=== PATIENT | male | born 2000 | race Caucasian/White ===

== ENCOUNTER 2023-01-12 01:29 | Observation (INO) ==
[2023-01-12] MEDS ORDERED: SODIUM CHLORIDE 0.9% 1,000 ML IV ONE (01:40)
--- NOTE | 2023-01-12 01:46 | Emergency Department Note ---
Impression & Plan Atrial fibrillation with rapid ventricular response, Alcohol overdose Admit to the [facility] ED Provider Note NAME: RADHA WALTERS AGE: 22 SEX: M ARRIVES VIA: Ambulance INFORMANT: Patient and EMS ED PROVIDER(S): Ginny Laird DO CHIEF COMPLAINT: Vomiting and alcohol intoxication PLAN: Disposition: Admit to the [facility] Condition: Guarded MEDICAL DECISION MAKING: This is a 22-year-old male patient who was found intoxicated and vomiting downtown. He was brought to the emergency department by EMS. Patient was noted to be in atrial fibrillation with rapid ventricular response. Laboratory studies were fairly unremarkable except for an elevated blood alcohol level of 148 and mild anemia of 12.3. Initial troponin was normal. Patient was bolused with IV normal saline solution and heart rate did seem to come down somewhat but the patient remained in atrial fibrillation. With any type of stimulation, heart rate would elevate again. Patient had no further vomiting while here in the ER. I discussed the case with the [facility]ist and they will evaluate for further management. During their evaluation of the patient, the patient converted to a normal sinus rhythm. However, they will continue with the cardiology evaluation of this patient. Triage Nursing notes reviewed and agree with them. Vital Signs: reviewed and remarkable for tachycardia Differential diagnosis: Alcohol overdose, drug intoxication, cardiac dysrhythmia, electrolyte imbalance, cardiac ischemia ER treatment provided: Cardiac monitoring Twelve-lead EKG IV normal saline bolus Diagnostics interpreted by me: ECG: A-fib with RVR at a rate of 124. ST segment depression and T wave in version inferiorly and laterally. There is no ectopy Repeat ECG: A-fib with RVR at a rate of 149. T wave inversions are more pronounced in leads II, III, aVF and V4, V5 and V6. Cardiac Monitoring: A-fib with RVR at a rate of 160 Laboratory studies: See below HPI: 22/M arrives for evaluation of vomiting and alcohol overdose. Patient was found vomiting downtown and admits to drinking alcohol. He denies any other drug use. 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 He occasionally drinks alcohol but denies drug use. HOME MEDICATIONS:None ALLERGIES:None VITALS:See Below PHYSICAL EXAMINATION: HEENT: Head - normocephalic and atraumatic. Pupils are equal, round, and reactive to light. Extraocular eye muscles are intact, and sclera are anicteric. Nose - moist nasal mucosa without discharge. Mouth - moist buccal mucosa. Oropharynx is nonerythematous and there is no tonsillar exudate or edema noted. Neck: Supple; no cervical lymphadenopathy or nuchal rigidity Heart: Tachycardic rate with irregularly irregular rhythm there is a normal S1 and S2 with no murmurs, clicks, or gallops appreciated. Lungs: Clear to auscultation bilaterally with no wheezes, rales, or rhonchi. Abdomen: Soft, completely nontender, nondistended, with good bowel sounds. There are no palpable pulsatile masses or hepatosplenomegaly. There is no guarding, rigidity, or rebound noted. Extremities: No evidence of cyanosis, clubbing, or edema. There are easily palpable peripheral pulses. Skin: Diaphoretic with good turgor and no rashes. ED COURSE: Times/Reassessments: 135 patient was evaluated in room a 12 He was placed in the prone position to avoid aspiration. A twelve-lead EKG was obtained. An order was placed for continuous cardiac monitoring. The patient was in A-fib with RVR at a rate of 160. An IV lock was initiated and labs were drawn as above. The patient was bolused with IV normal saline solution. Upon repeat evaluation, the patient is sleeping and slightly difficult to arouse. He remains tachycardic but blood pressure is normal. I discussed the case with the [facility] Hospitalist and they will evaluate for further management. Heart rate is currently 106. He remains in atrial fibrillation. Ginny Laird DO Past Med/Surg History Medical History (Updated 01/12/23 @ 08:59 by Ginny Laird DO) No chronic diseases present Surgical History (Updated 05/23/19 @ 23:51 by Rupert Hunter PA-C) No significant past surgical history Social History Smoking Status: Never smoker Hx Alcohol Use: Yes Hx Substance Use: No Preferred Language: Turkmen Communication Ability: Effective Bench Hand Machine Required: No Beliefs That Will Affect Care: None Current Living Situation: Other Current Living Situation Comment: College Dorm Other Information That Helps Us Care for You: No Feels Safe at Home: Yes Safety Concerns: Feels Safe At This Time Allergies Allergies Allergy/AdvReac Type Severity Reaction Status Date / Time No Known Allergies Allergy Unverified 05/23/19 03:15 Home Meds Home Medications Medication Instructions Recorded Confirmed No Known Home Medications 01/12/23 01/12/23 Results & Data (ED) Vital Signs Vital Signs - 24 hr 01/12/23 01:34 01/12/23 01:46 01/12/23 01:39 Temperature 36.8 C Temperature Source Oral Pulse Rate 160 H 171 H 132 H Pulse Rate from SpO2 Sensor Pulse Rhythm Irregular Pulse Strength Normal Respiratory Rate 20 14 Respiratory Effort / Characteristics Non-Labored Spontaneous Respiratory Depth Normal Respiratory Pattern Regular Blood Pressure 102/78 102/78 Blood Pressure Mean 86 86 Blood Pressure Position Lying Pulse Oximetry 96 98 Oxygen Delivery Method Room Air Room Air Sepsis Recent Fever Within 48 Hours No Sepsis New/Unexplained Change in Mental Status N/A Sepsis Action Taken by Nursing No Action Required 01/12/23 02:00 01/12/23 02:02 01/12/23 02:30 Temperature Temperature Source Pulse Rate 124 H 108 H 108 H Pulse Rate from SpO2 Sensor 111 H 92 H 176 H Pulse Rhythm Pulse Strength Respiratory Rate 18 16 18 Respiratory Effort / Characteristics Respiratory Depth Respiratory Pattern Blood Pressure 80/56 L 82/62 L 81/61 L Blood Pressure Mean 64 68 67 Blood Pressure Position Pulse Oximetry 99 98 96 Oxygen Delivery Method Room Air Room Air Room Air Sepsis Recent Fever Within 48 Hours Sepsis New/Unexplained Change in Mental Status Sepsis Action Taken by Nursing 01/12/23 03:10 01/12/23 03:37 01/12/23 03:30 Temperature Temperature Source Pulse Rate 133 H 85 158 H Pulse Rate from SpO2 Sensor 153 H Pulse Rhythm Pulse Strength Respiratory Rate 17 Respiratory Effort / Characteristics Respiratory Depth Respiratory Pattern Blood Pressure 101/56 L 113/75 Blood Pressure Mean 71 87 Blood Pressure Position Pulse Oximetry 97 100 Oxygen Delivery Method Room Air Room Air Sepsis Recent Fever Within 48 Hours Sepsis New/Unexplained Change in Mental Status Sepsis Action Taken by Nursing Laboratory Data 01/12/23 05:15 01/12/23 05:15 Lab Results 01/12/23 01/12/23 Range/Units 01:40 01:40 Sodium 141 (136-145) mmol/L Potassium 3.5 (3.5-5.1) mmol/L Chloride 107 (98-107) mmol/L Carbon Dioxide 22 (21-32) mmol/L Anion Gap 12 H (3-11) BUN 15 (6-23) mg/dl Creatinine 1.03 (0.6-1.4) mg/dl Est Cr Clr Drug Dosing 130.8 ml/min Est GFR ( Amer) 119.0 ml/min Est GFR (Non-Af Amer) 102.6 ml/min BUN/Creatinine Ratio 14.6 (10-20) Glucose 128 H (70-99(Fasting)) mg/dl Calcium 9.5 (8.6-10.3) mg/dl Phosphorus 4.7 (2.5-4.9) mg/dl Magnesium 2.3 (1.7-2.4) mg/dl Total Bilirubin 0.2 (0.2-1.0) mg/dl AST 31 (13-39) U/L ALT 30 (7-52) U/L Alkaline Phosphatase 68 (34-104) U/L Troponin I High Sens 20.8 H (0-20) pg/ml Total Protein 7.9 (6.0-8.3) gm/dl Albumin 4.8 (3.4-5.0) gm/dl Globulin 3.1 (2.5-4.0) gm/dl Albumin/Globulin Ratio 1.5 (0.9-2) Ethyl Alcohol mg/dL 148.6 H (<10.0) mg/dl Administered Medications Discontinued Medications Sodium Chloride (Nss) 1,000 mls @ 999 mls/hr IV .Q1H1M ONE Stop: 01/12/23 02:40 Last Infusion: 01/12/23 03:30 Dose: 0 mls/hr Documented By: Admin: 01/12/23 02:03 Dose: 999 mls/hr Documented By: NATACHA Sodium Chloride (Nss) 500 mls @ 999 mls/hr IV .Q31M ONE Stop: 01/12/23 04:12 Last Infusion: 01/12/23 05:00 Dose: 0 mls/hr Documented By: Admin: 01/12/23 04:13 Dose: 999 mls/hr Documented By: ELEONORA Lactated Ringer's (Lr) 1,000 mls @ 125 mls/hr IV .Q8H TEMI Stop: 01/12/23 12:42 Last Infusion: 01/12/23 14:38 Dose: 0 mls/hr Documented By: Admin: 01/12/23 05:54 Dose: 125 mls/hr Documented By: ELEONORA Folic Acid 1 mg/ Syringe 10 mls @ 5 mls/min IV QAM TEMI Stop: 02/11/23 08:59 Last Admin: 01/12/23 08:50 Dose: 5 mls/min Documented By: FINN Thiamine HCl 200 mg/ Sodium (Chloride) 52 mls @ 210 mls/hr IV QAM TEMI Stop: 02/11/23 08:59 Last Infusion: 01/12/23 11:15 Dose: 0 mls/hr Documented By: Admin: 01/12/23 10:51 Dose: 210 mls/hr Documented By: FINN Discharge Plan Visit Data Chief Complaint: Alcohol Intoxication ED Provider: Ginny Laird Discharge Problem: Atrial fibrillation with rapid ventricular response, Alcohol overdose Patient Disposition: Admitted As Inpatient Discharge Instructions Interventions: ED Discharge Assessment Last Done: 01/12/23 04:43 Alcohol overdose Qualifiers: Encounter type: initial encounter Injury intent: accidental or unintentional Qualified Code(s): T51.91XA - Toxic effect of unspecified alcohol, accidental (unintentional), initial encounter
[2023-01-12 02:17] LABS: Albumin Globulin Ratio 1.5 (0.9-2); Albumin Level 4.8 gm/dl (3.4-5.0); BUN Creatinine Ratio 14.6 (10-20); Bilirubin,Total 0.2 mg/dl (0.2-1.0); Calcium 9.5 mg/dl (8.6-10.3); Creatinine Clr Calc Pharmacy 130.8 ml/min; Est GFR (Non-African American) 102.6 ml/min; Globulin 3.1 gm/dl (2.5-4.0); Magnesium 2.3 mg/dl (1.7-2.4); Phosphorus 4.7 mg/dl (2.5-4.9); Potassium 3.5 mmol/L (3.5-5.1); Total Protein 7.9 gm/dl (6.0-8.3)
[2023-01-12 02:24] LABS: Troponin I High Sensitivity 20.8 pg/ml (0-20)
[2023-01-12] MEDS ORDERED: SODIUM CHLORIDE 0.9% 500 ML IV ONE (03:42)
--- NOTE | 2023-01-12 03:43 | History & Physical Report ---
Date of Service January 12, 2023 Assessment & Plan (1) New onset atrial fibrillation: Plan: -New onset atrial fibrillation w/ RVR, likely precipitated by significant alcohol consumption in pt w/o PMH or FMH of cardiac disease -Electrolytes wnl, hemodynamics improving -[id number] of 0, deferring anticoagulation -Currently with HR 130s, will attempt rate control with Lopressor/diltiazem once BP further improved -Monitor K, Mg -TSH added to AM labs -TTE pending -Telemetry monitoring (2) Alcohol intoxication: Plan: -Ethyl alcohol level 150 with altered mental status on exam -CBC, CMP w/o overt abnormality -Fluid repletion ongoing- LR 125 cc/hr -Thiamine 200 mg IV daily, folic acid 1 mg IV daily ordered -Deferring neuroimaging (3) Elevated troponin: Plan: -Troponin 21 on admission with some noted ST change -Pt without chest pain, unlikely to represent ACS- suspect demand ischemia from AF w/ RVR -Trend troponin to peak -TTE pending (4) Hypotension: Plan: -BP 80s/60s in ER, improved with fluid repletion -Likely from volume depletion 2/2 emesis from alcohol intoxication -Continue fluid repletion -Once BP further improved, will attempt rate control as above Plan FENGI: NPO pending mental status, LR IVF ongoing Code status: Full DVT prophylaxis: SCDs Isolation: None Disposition: PCU History of Present Illness Chief Complaint: Alcohol intoxication, new onset AF Primary Care Provider: [facility] Pt is 22 yo M with no significant PMH presenting with alcohol intoxication and new onset atrial fibrillation. Interview limited by patient's mental status, history obtained largely from chart review and minimally from patient. Pt was apparently found vomiting and intoxicated downtown. He states he drank "a lot" but cannot specify a quantity or the type of alcohol consumed. He states he vomited a few times and is sleepy now. Pt arrived to ER with tachycardia in atrial fibrillation up to 170s and BP 80s/60s, received 1L NSS bolus and hypotension improved along with HR decrease to 130s. Initial evaluation significant for EKG w/ atrial fibrillation with HR [address] elevations in anterior leads. Troponin 21, alcohol level 150. CBC, CMP, K, Mg otherwise unremarkable. Pt was sleepy during my evaluation, denied being intoxicated but did confirm significant alcohol consumption earlier in evening. He denies any known FMH of cardiac disease other than HTN in father, denies any own PMH. Denies any acute complaints including chest pain, palpitations, dizziness, dyspnea. Allergies Allergy/AdvReac Type Severity Reaction Status Date / Time No Known Allergies Allergy Unverified 05/23/19 03:15 Home Medications Medication Instructions Recorded Confirmed Type No Known Home Medications 01/12/23 01/12/23 History Past Med/Surg History Medical History (Updated 01/12/23 @ 08:59 by Ginny Laird DO) No chronic diseases present Surgical History (Updated 05/23/19 @ 23:51 by Rupert Hunter PA-C) No significant past surgical history Social History Smoking Status: Never smoker Hx Alcohol Use: Yes Hx Substance Use: No Preferred Language: Moldovan Communication Ability: Effective History Faculty Member Required: No Beliefs That Will Affect Care: None Current Living Situation: Other Current Living Situation Comment: College Dorm Other Information That Helps Us Care for You: No Feels Safe at Home: Yes Safety Concerns: Feels Safe At This Time Review of Systems Review of Systems: Per HPI Physical Exam Physical Exam: General: somnolent, laying prone in bed HEENT: PERRL, conjunctivae clear without injection, anicteric sclerae, moist mucous membranes Neck: supple, trachea midline, no thyromegaly, no JVD, no cervical lymphadenopathy CV: Irregularly irregular, tachycardic, normal S1 and S2, no murmurs Resp: CTAB, no increased work of breathing, no crackles or wheezes Abd: Soft, nontender, nondistended, no guarding or rebound MSK: Normal bulk of all four extremities Neuro: Somnolent, AOx3 with prompting Skin: no rashes or lesions, warm and dry Ext: no LE peripheral edema or erythema, capillary refill <2s in all four extremities, 2+ LE peripheral pulses b/l Results & Data Results & Data Vital Signs (Past 12 Hours) Vital Signs Temp Pulse Resp BP Pulse Ox O2 Del Method 01/12/23 03:10 133 H 17 101/56 L 97 Room Air 01/12/23 02:30 108 H 18 81/61 L 96 Room Air 01/12/23 02:02 108 H 16 82/62 L 98 Room Air 01/12/23 02:00 124 H 18 80/56 L 99 Room Air 01/12/23 01:39 132 H 14 102/78 98 Room Air 01/12/23 01:46 36.8 C 171 H 20 102/78 96 Room Air 01/12/23 01:34 160 H Supervising Physician Co-Signing Physician Notes Patient seen and examined, chart reviewed, case discussed with Dr. Vargas and I agree with the assessment and plan as above. In brief, patient is a 22yo male presenting with acute alcohol intoxication, new atrial fibrillation noted. Patient given IVF in the ER. Eventually converted to sinus tachycardia On exam he is afebrile, sinus tachycardia noted on monitor - EKG obtained Skin - intact, no rashes HEENT - NC/AT, PERRL, MMM, Neck supple Heart - +S1/S2, regular, tachycardic, no m/r/g, no chest wall bruising Lungs - CTA anteriorly Abd - +BS, soft, NT/ND, no abdominal bruising Ext- warm, well perfused, no clubbing/cyanosis or edema Labs and images reviewed. Electrolytes within normal range. TSH normal. Assessment/Plan: Atrial fibrillation in setting of EtOH consumption. Now converted to NSR. Electrolytes and TSH WNL -Observation -Check 2D echo -Remainder as above Resident Activity Tracking Resident Involvement: Resident Care Provided Care Provided: Adult Hospital Medicine
[2023-01-12] MEDS ORDERED: LACTATED RINGER'S 1,000 ML IV SCH (04:43)
[2023-01-12 05:52] LABS: Hematocrit (blood only) 35.7 % (42.0-52.0); Hemoglobin 12.1 g/dl (14.0-18.0); Mean Corpuscular Hemoglobin 28.8 pg (25.0-34.0); Mean Corpuscular Hgb Conc 33.9 g/dL (32.0-36.0); Mean Platelet Volume 9.2 fL (9.4-12.4); Platelet Count 321 K/uL (130-400); RDW Coefficient of Variation 13.2 % (11.5-14.5); RDW Standard Deviation 40.4 fL (36.4-46.3); White Blood Count 13.22 K/ul (4.8-10.8)
[2023-01-12 06:23] LABS: BUN Creatinine Ratio 12.9 (10-20); Calcium 8.2 mg/dl (8.6-10.3); Creatinine Clr Calc Pharmacy 158.5 ml/min; Est GFR (African American) 143.4 ml/min; Est GFR (Non-African American) 123.7 ml/min; Potassium 4.2 mmol/L (3.5-5.1)
[2023-01-12 06:29] LABS: Troponin I High Sensitivity 19.3 pg/ml (0-20)
[2023-01-12] MEDS ORDERED: THIAMINE HCL 200 MG in SODIUM CHLORIDE 0.9% 50 ML IV SCH (09:00)
[2023-01-12] MEDS ORDERED: FOLIC ACID 1 MG in SYRINGE 9.8 ML IV SCH (09:00)
--- NOTE | 2023-01-12 09:27 | Electrocardiogram Report ---
Test Reason : Blood Pressure : / mmHG Vent. Rate : 124 BPM Atrial Rate : 000 BPM P-R Int : 000 ms QRS Dur : 100 ms QT Int : 290 ms P-R-T Axes : 000 117 239 degrees QTc Int : 416 ms Suspect arm lead reversal, interpretation assumes no reversal Atrial fibrillation with rapid ventricular response Septal infarct , age undetermined Lateral infarct , age undetermined Abnormal ECG No previous ECGs available Confirmed by Everton Jarquin ([id number]) on 01/12/2023 9:27:29 AM Referred By: [facility] Confirmed By:Everton Jarquin
--- NOTE | 2023-01-12 09:28 | Electrocardiogram Report ---
Test Reason : Blood Pressure : / mmHG Vent. Rate : 149 BPM Atrial Rate : 000 BPM P-R Int : 000 ms QRS Dur : 090 ms QT Int : 270 ms P-R-T Axes : 000 069 -70 degrees QTc Int : 425 ms Atrial fibrillation with rapid ventricular response Abnormal ECG When compared with ECG of 12-JAN-2023 01:40, (unconfirmed) QRS axis Shifted left Criteria for Septal infarct are no longer Present Criteria for Lateral infarct are no longer Present ST elevation now present in Anterior leads T wave inversion less evident in Anterior leads Confirmed by Everton Jarquin ([id number]) on 01/12/2023 9:27:51 AM Referred By: [facility] Confirmed By:Everton Jarquin
--- NOTE | 2023-01-12 10:55 | Discharge Summary ---
Date of Service January 12, 2023 Admission HPI Per Admitting Provider Pt is 22 yo M with no significant PMH presenting with alcohol intoxication and new onset atrial fibrillation. Interview limited by patient's mental status, history obtained largely from chart review and minimally from patient. Pt was apparently found vomiting and intoxicated downtown. He states he drank "a lot" but cannot specify a quantity or the type of alcohol consumed. He states he vomited a few times and is sleepy now. Pt arrived to ER with tachycardia in atrial fibrillation up to 170s and BP 80s/60s, received 1L NSS bolus and hypotension improved along with HR decrease to 130s. Initial evaluation significant for EKG w/ atrial fibrillation with HR [address] elevations in anterior leads. Troponin 21, alcohol level 150. CBC, CMP, K, Mg otherwise unremarkable. Pt was sleepy during my evaluation, denied being intoxicated but did confirm significant alcohol consumption earlier in evening. He denies any known FMH of cardiac disease other than HTN in father, denies any own PMH. Denies any acute complaints including chest pain, palpitations, dizziness, dyspnea. Principal Diagnosis atrial fibrillation Discharge Exam Constitutional WD/WN, vitals as above Respiratory normal respiratory effort, lungs clear to auscultation Cardiovascular Rate/Rhythm: regular rate Heart Sounds: normal S1 and normal S2 Palpation: normal PMI Discharge Data Allergies Allergy/AdvReac Type Severity Reaction Status Date / Time No Known Allergies Allergy Unverified 05/23/19 03:15 Consultations 01/12/23 03:17 ED Decision to Admit Stat Total Time Total Time Spent Total Time Spent (In Minutes): see attending attestation Discharge Plan Discharge Items Patient Disposition: Home - Self-Care Reason For Visit: ALCOHOL INTOXICATION, NEW AF Discharge Diagnosis: Atrial fibrillation Activity: Per Instructions section Non-emergency contact: Primary Care Provider Call non-emergency contact if: your symptoms worsen Follow-up/Referrals: [facility] [Primary Care Provider] - Jag Bhakta MD [Resident] - Diet: Regular Addtl Attending Provider Instructions: You were admitted to the hospital for acute intoxication and found to be in atrial fibrillation. You were treated with IV fluids, thiamine, and folic acid. A discharge summary will be sent to your primary care physician to ensure continuity of care. Please bring this discharge summary with you to your next office appointment so that your provider can review it at that time. Follow-up appointments: We have requested a follow-up appointment with your primary care physician within one week of discharge. Please call their office if you do not hear from them. Feel free to make it with Dr. Bhakta, [facility], at the [facility] Office, . Medications: Your medication list has been reviewed and reconciled upon discharge to ensure accuracy and continuity of care. An updated list of all your medications is included with your hospital discharge paperwork. Please review this list closely, and make note of any changes. Take your medications as instructed; do not skip a dose of your medicines. Make sure all of your doctors know every medicine you are taking (including [id number] medicines, vitamins, and supplements). Call your primary care provider before taking any new medicines (including [id number] medicines, vitamins, and supplements), because some of these may interact with your current medications, or may make your symptoms worse. Tell your primary care provider if you cannot afford your medications. CONTACT YOUR PRIMARY CARE PROVIDER if you experience any of the following: [chest pain, palpitations, dizziness Difficulty following your treatment plan, or difficulty taking medications CALL 911 OR GO TO THE EMERGENCY DEPARTMENT if you experience any of the following: Sudden, severe abdominal pain or nausea/vomiting Severe chest pain, or chest pain that radiates (moves) to your jaw or arm Sudden, severe shortness of breath or difficulty breathing Thank you for allowing us to participate in your care Pending Studies at Discharge: No Stand-Alone Forms: My [facility], Smoking Cessation Medications and DC Order Prescriptions: Continued No Known Home Medications Discharge Orders: Discharge Order (Routine); Ordered 01/12/23 Ordered By: Jag Bhakta Admission Data Admit Date/Time: 01/12/23 03:42 Attending Provider: Jag Brown Admit Provider: Kimani Vargas Primary Care Provider: [facility] Other Providers: Magalie Briones Other Interventions: Discharge Summary Assessment (RN) Last Done: 01/12/23 15:56 Supervising Physician Co-Signing Physician Notes Attending attestation Pt seen and examined in concert with Dr. Bhakta. In agreement with the documented findings as noted in the resident documentation with any exceptions or additions as noted here. Resting comfortably in bed without acute complaint. On examination, S1/S2 nl RRR no MCG. CTAB. Abd NT/ND BS+ve. No edema of the LE appreciated. Atrial fibrillation with RVR s/p etOH and n/v with elevated etOH level - symptoms resolved, sinus rhythm with controlled HR. [id number] 0. Extensive counseling re: impact of etOH on the heart, risk of similar issues with ongoing alcohol intake and monitoring closely for worsening symptoms with precautions for return. Encouraged to follow up with [facility] family medicine [facility] for eval and routine care. Else see resident documentation as noted. Total attending physician time spent with this patient's care on the day of discharge: 35 minutes.
--- NOTE | 2023-01-12 12:37 | XCELERA ---
[id number] [id number]
--- NOTE | 2023-01-12 12:57 | Electrocardiogram Report ---
Test Reason : Blood Pressure : / mmHG Vent. Rate : 101 BPM Atrial Rate : 101 BPM P-R Int : 152 ms QRS Dur : 096 ms QT Int : 322 ms P-R-T Axes : 064 061 035 degrees QTc Int : 417 ms Sinus tachycardia Nonspecific ST abnormality Abnormal ECG When compared with ECG of 12-JAN-2023 03:08, Sinus rhythm has replaced Atrial fibrillation T wave inversion no longer evident in Inferior leads T wave inversion no longer evident in Lateral leads Confirmed by Everton Jarquin ([id number]) on 01/12/2023 12:57:25 PM Referred By: [facility] Confirmed By:Everton Jarquin
[2023-01-12 13:16] LABS: Basophils # (auto) 0.06 K/uL (0.00-0.20); Basophils % (auto) 0.6 %; Eosinophils # (auto) 0.08 K/uL (0.00-0.50); Eosinophils % (auto) 0.8 %; Hematocrit (blood only) 36.3 % (42.0-52.0); Hemoglobin 12.3 g/dl (14.0-18.0); Immature Granulocytes # (auto) 0.02 K/uL (0.01-0.20); Immature Granulocytes % (auto) 0.2 %; Lymphocytes # (auto) 2.42 K/uL (1.20-3.40); Lymphocytes % (auto) 24.7 %; Mean Corpuscular Hemoglobin 28.8 pg (25.0-34.0); Mean Corpuscular Hgb Conc 33.9 g/dL (32.0-36.0); Mean Platelet Volume 9.1 fL (9.4-12.4); Monocytes # (auto) 0.83 K/uL (0.11-0.59); Monocytes % (auto) 8.5 %; Neutrophils # (auto) 6.38 K/uL (1.40-6.50); Neutrophils % (auto) 65.2 %; Platelet Count 319 K/uL (130-400); RDW Coefficient of Variation 13.2 % (11.5-14.5); RDW Standard Deviation 40.4 fL (36.4-46.3); Red Blood Count 4.27 M/uL (4.70-6.10); White Blood Count 9.79 K/ul (4.8-10.8)
--- NOTE | 2023-01-12 17:39 | Billing Data ---
Date of Service January 12, 2023 Coding Level of Care Code 57398 INT INP/OBS CARE
--- NOTE | 2023-01-13 11:17 | Electrocardiogram Report ---
Test Reason : Blood Pressure : / mmHG Vent. Rate : 088 BPM Atrial Rate : 088 BPM P-R Int : 156 ms QRS Dur : 094 ms QT Int : 342 ms P-R-T Axes : 058 045 025 degrees QTc Int : 413 ms Normal sinus rhythm ST elevation, consider early repolarization, pericarditis, or injury Abnormal ECG When compared with ECG of 12-JAN-2023 04:04, No significant change was found Confirmed by Everton Jarquin ([id number]) on 01/13/2023 11:16:42 AM Referred By: [facility] Confirmed By:Everton Jarquin
== END 2023-01-12 15:58 | disposition home or self-care (01) ==
LOC: ED 01:29 → INTOOBSV 03:42 → EDINP 03:42 → SUATTDRO 03:42 → EDINP 04:43